=== PATIENT | male | born 1955 | race Caucasian/White ===

== ENCOUNTER 2017-06-03 13:36 | Emergency (ER) | payer MEDICAID ==
[2017-06-03 13:40] VITALS: BP 181/102; PULSE 75; RESP 16; TEMP 97.4; O2SAT 99
--- NOTE | 2017-06-03 15:20 | ED PDOC ---
Lower Extremity Pain/Injury Time Seen by Provider: 06/03/17 15:19 Chief Complaint (Nursing): Weakness/Neurological Deficit Chief Complaint (Provider): HIP PAIN History Per: Patient (61 Y/O FEMALE HERE WITH RIGHT HIP PAIN ONGOING X 2 WEEKS WORSENING TODAY KEEPING HIM FROM WALKING. HAS NOT SEEKED MEDICAL ATTENTION OF YET. DID NOT TAKE ANY MEDICATION.) Past Medical History Reviewed: Historical Data, Nursing Documentation, Vital Signs Vital Signs: Last Vital Signs Temp 97.4 F L 06/03/17 13:38 Pulse 75 06/03/17 13:38 Resp 16 06/03/17 13:38 BP 181/102 H 06/03/17 13:38 Pulse Ox 99 06/03/17 13:38 - Family History Family History: States: No Known Family Hx - Home Medications Home Medications: Ambulatory Orders Medication Instructions Recorded Naproxen 1 tab PO Q12 PRN #10 tab 06/03/17 - Allergies Allergies/Adverse Reactions: Allergies Allergy/AdvReac Type Severity Reaction Status Date / Time No Known Allergies Allergy Verified 06/03/17 13:38 Review of Systems ROS Statement: Except As Marked, All Systems Reviewed And Found Negative Physical Exam - Reviewed Nursing Documentation Reviewed: Yes Vital Signs Reviewed: Yes - Physical Exam Appears: Positive for: Well, Non-toxic, No Acute Distress Head Exam: Positive for: ATRAUMATIC, NORMAL INSPECTION, NORMOCEPHALIC Skin: Positive for: Normal Color, Warm, DRY Eye Exam: Positive for: EOMI, Normal appearance, PERRL ENT: Positive for: Normal ENT Inspection Neck: Positive for: Normal, Painless ROM Cardiovascular/Chest: Positive for: Regular Rate, Rhythm Respiratory: Positive for: CNT, Normal Breath Sounds Gastrointestinal/Abdominal: Positive for: Normal Exam, Bowel Sounds, Soft Back: Positive for: Normal Inspection Extremity: Positive for: Normal ROM Neurologic/Psych: Positive for: Alert, Oriented - ECG O2 Sat by Pulse Oximetry: 99 - Progress ED Course And Treament: ACETAMINOPHEN 650MG xry of hip: no fx Disposition - Clinical Impression Clinical Impression: Chronic hip pain - Patient ED Disposition Is Patient to be Admitted: No - Disposition Referrals: [facility] [Outside] Disposition: Routine/Home Disposition Time: 16:16 Condition: FAIR Prescriptions: Naproxen 1 tab PO Q12 PRN #10 tab PRN Reason: Pain, Moderate (4-7) Instructions: Hip Pain (ED) Forms: [employer] (Yoruba)
--- NOTE | 2017-06-03 15:49 | RAD ---
PROCEDURE: Right Hip Radiographs. HISTORY: HIP PAIN COMPARISON: None. FINDINGS: BONES: No acute fracture. Well corticated ossific density adjacent to the right acetabulum. JOINTS: Normal. SOFT TISSUES: Normal. OTHER FINDINGS: None. IMPRESSION: No demonstrated fracture or dislocation. Well corticated ossific density adjacent to the right acetabulum which may represent a focus of heterotopic ossification.
== END 2017-06-03 16:59 | disposition home or self-care (01) ==
LOC: H.ER 13:36
DX: M25.551 Pain in right hip (principal); G89.29 Other chronic pain

== ENCOUNTER 2017-06-04 12:03 | Emergency (ER) | payer MEDICAID ==
[2017-06-04 12:08] VITALS: BP 159/98; PULSE 86; TEMP 97.6; O2SAT 100
[2017-06-04 12:30] VITALS: RESP 16
[2017-06-04] MEDS ORDERED: Naproxen 500 MG TAB PO STA (13:05)
--- NOTE | 2017-06-04 13:28 | ED PDOC ---
Lower Extremity Pain/Injury Time Seen by Provider: 06/04/17 13:04 Chief Complaint (Nursing): Hip Pain Chief Complaint (Provider): Right Hip Pain History Per: Patient History/Exam Limitations: no limitations Current Symptoms Are (Timing): Still Present Additional History Per: EMS Additional Complaint(s): Francesco is a 61 y/o male, homeless with no PMD, who was brought to the ED via EMS for bilateral hip pain, right greater than left. Patient was seen here yesterday and had an XR of his hip which did not demonstrate any injury. Today, he called 911 and was brought by EMS to the ER. Triage nurse noticed that patient was able to bear weight when transferring from ambulance to wheelchair. PMD: None Past Medical History Reviewed: Historical Data, Nursing Documentation, Vital Signs Vital Signs: Last Vital Signs Temp 97.6 F 06/04/17 12:27 Pulse 86 06/04/17 12:27 Resp 16 06/04/17 12:27 BP 159/98 H 06/04/17 12:27 Pulse Ox 100 06/04/17 12:27 - Family History Family History: States: Unknown Family Hx - Home Medications Home Medications: Ambulatory Orders Medication Instructions Recorded Naproxen 1 tab PO Q12 PRN #10 tab 06/03/17 Naproxen 1 tab PO Q12 PRN #10 tab 06/04/17 - Allergies Allergies/Adverse Reactions: Allergies Allergy/AdvReac Type Severity Reaction Status Date / Time No Known Allergies Allergy Verified 06/03/17 13:38 Review of Systems ROS Statement: Except As Marked, All Systems Reviewed And Found Negative Musculoskeletal: Positive for: Other (hip pain) Physical Exam - Reviewed Nursing Documentation Reviewed: Yes Vital Signs Reviewed: Yes - Physical Exam Appears: Positive for: Well, Non-toxic, No Acute Distress Cardiovascular/Chest: Positive for: Regular Rate, Rhythm. Negative for: Murmur Respiratory: Positive for: Normal Breath Sounds. Negative for: Respiratory Distress Extremity: Positive for: Tenderness (right hip and thigh) Neurologic/Psych: Positive for: Alert, Oriented - ECG O2 Sat by Pulse Oximetry: 100 (RA) Pulse Ox Interpretation: Normal - Progress ED Course And Treament: ct of hips ordered as patient refusing to walk in ED naproxen 500mg Patient noted to have dressed self and walking through ED after CT ct hip: FINDINGS: Bones/joints: Nondisplaced fracture right sacrum. 1.2 cm lesion right femoral head. It is lucent with sclerotic rim in central sclerotic nidus. Probable osteoid osteoma. SI joint is preserved. No dislocation. Soft tissues: Unremarkable. IMPRESSION: 1. Nondisplaced fracture right sacrum. 2. No hip fracture. Thank you for allowing us to participate in the care of your patient. Dictated and Authenticated by: Jonna Morgan MD Medical Decision Making Medical Decision Making: Time: 13:04 Initial Impression: Hip Pain Initial Plan: --CT Hip w/o Contrast --Naproxen 500 mg Scribe Attestation: Documented by Randy Cook, acting as a scribe for Lelo Swenson PA-C Provider Scribe Attestation: All medical record entries made by the Scribe were at my direction and personally dictated by me. I have reviewed the chart and agree that the record accurately reflects my personal performance of the history, physical exam, medical decision making, and the department course for this patient. I have also personally directed, reviewed, and agree with the discharge instructions and disposition. Disposition - Clinical Impression Clinical Impression: Osteoid osteoma - Patient ED Disposition Is Patient to be Admitted: No - Disposition Referrals: Ollie Diane MD [Medical Doctor] - [facility] [Outside] Disposition: Routine/Home Disposition Time: 16:08 Condition: FAIR Additional Instructions: you can f/u with [facility] [phone] Prescriptions: Naproxen 1 tab PO Q12 PRN #10 tab PRN Reason: Pain, Moderate (4-7) Instructions: Benign Bone Tumor (GEN) Forms: [employer] (Swedish)
[2017-06-04] MEDS ORDERED: Naproxen 500 MG TAB PO ONE (14:06)
--- NOTE | 2017-06-04 15:58 | CT ---
EXAM: CT Left Lower Extremity Without Intravenous Contrast, Hip CLINICAL HISTORY: 61 years old, male; Pain; Hip; Bilateral; Additional info: Hip injury TECHNIQUE: Axial computed tomography images of the left hip without intravenous contrast. All CT scans at this facility use one or more dose reduction techniques, viz.: automated exposure control; ma/kV adjustment per patient size (including targeted exams where dose is matched to indication; i.e. head); or iterative reconstruction technique. Coronal and sagittal reformatted images were created and reviewed. COMPARISON: No relevant prior studies available. FINDINGS: Bones/joints: Nondisplaced fracture left sacrum. No hip fracture. SI joint is preserved. 7 x 15 mm bone cyst left ileum. No dislocation. Soft tissues: Unremarkable. IMPRESSION: 1. Nondisplaced fracture left sacrum. 2. No hip fracture. EXAM: CT Right Lower Extremity Without Intravenous Contrast, Hip EXAM DATE/TIME: 06/04/2017 1:04 PM CLINICAL HISTORY: 61 years old, male; Pain; Hip; Bilateral; Additional info: Hip injury TECHNIQUE: Axial computed tomography images of the right hip without intravenous contrast. All CT scans at this facility use one or more dose reduction techniques, viz.: automated exposure control; ma/kV adjustment per patient size (including targeted exams where dose is matched to indication; i.e. head); or iterative reconstruction technique. Coronal and sagittal reformatted images were created and reviewed. COMPARISON: No relevant prior studies available. FINDINGS: Bones/joints: Nondisplaced fracture right sacrum. 1.2 cm lesion right femoral head. It is lucent with sclerotic rim in central sclerotic nidus. Probable osteoid osteoma. SI joint is preserved. No dislocation. Soft tissues: Unremarkable. IMPRESSION: 1. Nondisplaced fracture right sacrum. 2. No hip fracture.
== END 2017-06-04 16:37 | disposition home or self-care (01) ==
LOC: H.ER 12:03
DX: D16.9 Benign neoplasm of bone and articular cartilage, unspecified (principal)